=== PATIENT | female | born 1990 | race American Indian/Alaskan Native ===

== ENCOUNTER 2017-12-23 15:22 | Inpatient (IN) | payer OTHER ==
[~2017-12-23] VITALS: Ht 160 cm; Wt 50.6 kg
[~2017-12-23 15:22] MED LIST: ALBENZA200 MG PO; CEPHALEXIN500 MG PO; COLACE100 MG PO; CONCERTA54 MG PO; IRON325 MG PO; PREDNISONE20 MG PO; PROVENTIL HFA6.7 GM INH; RISPERDAL4 MG PO
--- NOTE | 2017-12-23 18:45 | NUR ---
PT TO ROOM 113 AT THIS TIME. PT ALERT AND ORIENTED. SHE REPORTS 10/10 PAIN
--- NOTE | 2017-12-23 19:25 | NUR ---
IN ROOM FOR REPORT, PT IS AWAKE IN BED WITH MOM IN ROOM. SHE DENIES NEEDS AT THIS TIME CALL LIGHT IS WITHIN REACH.
--- NOTE | 2017-12-23 19:31 | NUR ---
ADMINSITERED 4MG I.V. MORPHINE AT THIS TIME PER TELEPHONE ORDER. PT RATES PAIN 03/11
--- NOTE | 2017-12-23 20:10 | NUR ---
IN ROOM TO ASSESS PT, SHE STATES HER PAIN IS UNDER CONTROL AT THIS TIME. SHE IS SLEEPY AND DENIES NEEDS. CALL LIGHT IS WITHIN REACH AND HER PARENTS ARE AT BEDSIDE.
--- NOTE | 2017-12-23 21:06 | NUR ---
ROUNDED CHARGE. PATIENT IS RESTING IN BED. NO COMMENTS, QUESTIONS, OR CONCERNS NOTED. CALL LIGHT IN REACH.
--- NOTE | 2017-12-23 22:38 | NUR ---
PATIENTS BOLUS STARTED PER ORDER. EVENING MEDICATIONS GIVEN PER ORDER. NO NAUSEA OR PAIN NOTED. CALL LIGHT IN REACH.
--- NOTE | 2017-12-23 22:53 | NUR ---
ASSISTED PATIENT TO THE BATHROOM. PATIENT HAD 600ML VOMITUS WITH SOME SOLID PARTTICLES LOOKS LIKE FROM FOOD SHE ATE. PATIENT C/O STOMACH PAIN. RN JAYLENE NOTIFIED. PATIENT IS BACK IN BED. PATIENT ASKED FOR [place] SODA, GIVEN. CALL LIGHT WITHIN REACH.
--- NOTE | 2017-12-23 23:04 | NUR ---
VOCATIONAL NURSING INSTRUCTOR REPORTED PT HAD EMESIS AND PAIN. PT RATES PAIN 5/10 AT THIS TIME. ADMINISTERED ZOFRAN AND 4 MG MORPHINE. SHE DENIES FURTHER NEEDS AT THIS TIME. CALL LIGHT IS WITHIN REACH.
--- NOTE | 2017-12-24 00:57 | NUR ---
HANDOFF REPORT RECEIVED FROM JD MARIEE. CHECKED ON PT, APPEARS TO BE SLEEPING, EYES CLOSED, BREATHING NON-LABORED, IVF INFUSING, SCDS ON.
--- NOTE | 2017-12-24 01:51 | NUR ---
IN PT ROOM FOR VITALS AND ASSESSMENT, PT AWAKE, LYING IN BED, DROWSY, RATES PAIN 0/10 AT THIS TIME. ABD TENDER IN RUQ WITH PALPATION, BOWEL TONES ACTIVE X 4, ABD. SOFT, NON-DISTENDED. LUNGS CLEAR THROUGHOUT, HR REGULAR RHYTHM. CSM INTACT. IVF INFUSING WNL, D5LR NOW INFUSING. CALL LIGHT IN REACH. LIGHTS OFF IN ROOM.
--- NOTE | 2017-12-24 01:52 | NUR ---
JD LYON IS AWARE RE BP.
--- NOTE | 2017-12-24 04:00 | NUR ---
CHECKED ON PT, EYES CLOSED, BREATHING NON-LABORED, MOVING LEGS, SCDS ON, IVF INFUSING.
--- NOTE | 2017-12-24 05:29 | NUR ---
PT HAD EMESIS AT START OF SHIFT. PAIN WELL CONTROLLED THROUGHOUT SHIFT WITH PRN MORPHINE. BOWEL TONES ACTIVE, ABD SOFT, TENDER IN RUQ. PT NPO AT MIDNIGHT. IVF INFUSING THROUGHOUT SHIFT. SCDS IN PLACE. PT USING CALL LIGHT APPRORIATELY SBA TO RESTROOM QS VOIDS AND BM THIS SHIFT.
--- NOTE | 2017-12-24 05:52 | NUR ---
IN PT ROOM FOR SCHEDULED ANTIBIOTIC ADMINISTRATION. PT SLEEPING, AWAKENS TO RN VOICE. PT DENIES PAIN AT THIS TIME, DROWSY. RICHIE JOHNSON IN ROOM FOR VITALS. CALL LIGHT IN REACH, PT HAS NO REQUESTS AT THIS TIME, DENIES TOILETING NEEDS.
--- NOTE | 2017-12-24 06:42 | NUR ---
CALL LIGHT ANSWERED, PT SALINE LOCKED FOR SHOWER. RICHIE JOHNSON IN ROOM, EDUCATION PROVIDED FOR SURGICAL SCRUB DOWN, PT VERBALIZES UNDERSTANDING.
--- NOTE | 2017-12-24 06:59 | NUR ---
PATIENT SHOWERED. PRE OP WIPES DONE.
--- NOTE | 2017-12-24 07:59 | NUR ---
PT RESTING AT BEDSIDE WITH FAMILY, DENIES PAIN AND NAUSEA, NO DISTRESS. PT STATES THAT SHE DID THE PRE PROCEDURE CLEANSE INSTRUCTED BY TAXI SERVICER. PT IS INTERMITTENTLY DROWSY DUE TO LACK OF SLEEP ON TAXI SERVICER. ABDOMEN IS NONTENDER TO PALPATION THIS MORNING, NO EMESIS.
--- NOTE | 2017-12-24 11:08 | NUR ---
12/24/17 1108 Ramya Lopez 1103-PATIENT ARRIVED TO PACU ON 10L MASK O2 SAT 100% PATIENT MOVING LEGS. REACTIVE TO VOICE EYES OPENING ORIENTED TO PLACE. WEANED TO 6L MASK O2 SAT 100% RR EVEN. SR. 4 LAP SITES TO ABDOMEN CDI.
--- NOTE | 2017-12-24 11:45 | NUR ---
RECEIVED PT FROM PACU, DROWSY BUT ABLE TO CONVERSE AND TRANSFER HERSELF TO HER BED. 4 LAP SITES WITH STERISTRIPS WITH SMALL AMOUNT OF SANGUOUS DRAINAGE. VSS, ON ROOM AIR, NO DISTRESS. PT DENIES NAUSEA/NO EMESIS.
--- NOTE | 2017-12-24 13:00 | NUR ---
PT RESTING AT BEDSIDE, VSS, NO DISTRESS, VERY DROWSY BUT ROUSABLE. MINIMAL DRAINAGE TO LAP SITES. PT USING SCDS, AND DOES NOT REQUEST PAIN MANGAGEMENT AT THIS TIME.
--- NOTE | 2017-12-24 15:26 | NUR ---
PT SLEEPING. PT DOES NOT WANT TO EAT AT THIS TIME.
--- NOTE | 2017-12-24 16:46 | NUR ---
PT DROWSY AT BEDSIDE, ORDERED DINNER EARLY, BUT CURRENTLY NOT EATING. VSS, NO DISTRESS. REINFORCED DRESSINGS, NO ADDITIONAL DRAINAGE NOTED. WILL CONTINUE TO MONITOR.
--- NOTE | 2017-12-24 18:14 | NUR ---
LINENS CHANGE, GIVEN NEW GOWN, PT SOILED WITH FOOD. PT DENIES NAUSEA AND COMPLAINS OF ABDOMINAL PAIN, GAVE PRN IBUPROFEN PER ORDERS. WILL CONTINUE TO MONITOR.
--- NOTE | 2017-12-24 18:15 | NUR ---
PT HAS NOT COMPLAINED OF PAIN UNTIL AFTER 1800. PT DENIES NAUSEA AND SOB. SURGERY WENT WELL, MINIMAL DRAINAGE TO LAT SITES, REINFORCED TWO, NO NEW DRAINAGE. PT UP TO BATHROOM WITH MINIMAL ASSIST. PT HAS TOLERATED MEALS THUS FAR. ABDOMEN IS TENDER TO PALPATION.
--- NOTE | 2017-12-24 19:00 | NUR ---
BEDSIDE REPORT RECEIVED FROM JD HEARD. PT APPEARS TO BE SLEEPING, EYES CLOSED, BREATHING NON-LABORED. CONT. PULSE OX ON SPO2 98%, HR 97. IVF INFUSING WNL. SCDS ON. WILL CONTINUE TO MONITOR.
--- NOTE | 2017-12-24 20:29 | NUR ---
NEW BAG IVF INFUSING. PT RATES PAIN 3/10 IN ABD AT INCISION SITES, BOWEL TONES ACTIVE X 4, TENDER W PALPATION IN RUQ, ABD SOFT. PT DENIES NAUSEA. INCISIONS CLEAN DRY AND INTACT, MID ABD SITE WITH GAUZE REINFORCING, NO DRAINAGE NOTED. SBA TO RESTROOM FOR VOID AND BACK TO BED. PT GIVEN ICE WATER, SPRITE REQUESTED. CALL LIGHT IN REACH, LIGHTS OFF IN ROOM. SCDS ON.
--- NOTE | 2017-12-24 21:06 | NUR ---
CALL LIGHT ANSWERED, SBA TO RESTROOM FOR VOID AND BACK TO BED. PT C/O "DISCOMFORT", "NOT PAIN" IN ABD. PRN TYLENOL ADMINISTERED. SCDS ON, IVF INFUSING. CALL LIGHT IN REACH.
--- NOTE | 2017-12-24 22:06 | NUR ---
CALL LIGHT ANSWERED, PT C/O PAIN 10/09 PRN NORCO ADMINISTERED. SBA TO RESTROOM FOR VOID. GIVEN SANDWICH REQUESTED. IVF INFUSING WNL. SCDS ON. CALL LIGHT IN REACH.
--- NOTE | 2017-12-25 00:15 | NUR ---
CHECKED ON PT, APPEARS TO BE SLEEPING, EYES CLOSED. SATURATIONS WNL ON CONT. PULSE OX, SCDS ON, IVF INFUSING. LIGHTS OFF IN ROOM.
--- NOTE | 2017-12-25 01:50 | NUR ---
IN PT ROOM FOR VITALS, VITALS STABLE. SBA TO RESTROOM FOR VOID AND BACK TO BED, PT PASSING FLATUS. BOWEL TONES ACTIVE X 4, LAP SITES C/D/I X 4, NONTENDER W PALPATION, PT DENIES PAIN, DENIES NAUSEA, ABD.SOFT. IVF INFUSING WNL. PT GIVEN SPRITE REQUESTED. CALL LIGHT IN REACH, SCDS ON.
--- NOTE | 2017-12-25 02:30 | NUR ---
CALL LIGHT ANSWERED, PT C/O DISCOMFORT WHEN TRYING TO HAVE BM, DOES NOT RATE PAIN, PRN MOTRIN ADMINISTERED. SCDS ON, IVF INFUSING, CALL LIGHT IN REACH.
--- NOTE | 2017-12-25 04:31 | NUR ---
CHECKED ON PT, EYES CLOSED, BREATHING NON-LABORED, SATURATIONS WNL. IVF INFUSING, SCDS ON.
--- NOTE | 2017-12-25 06:00 | NUR ---
PAIN CONTROLLED WITH PRN MOTRIN, TYLENOL AND NORCO. PT AMBULATING WELL, INDEPENDANT IN ROOM. LAP SITES C/D/I, BOWEL TONES ACTIVE X 4, ABD SOFT, PT PASSING FLATUS. NO REPORTED NAUSEA, TOLERATING REGULAR DIET WELL. IVF INFUSING WNL THROUGHOUT SHIFT. SCDS ON.
--- NOTE | 2017-12-25 06:28 | NUR ---
IN PT ROOM FOR ANTIBIOTIC ADMINISTRATION. PT DENIES ANY PAIN. DROWSY, AWAKENS EASILY. SCDS ON. IVF INFUSING WNL. CALL LIGHT IN REACH. NO REQUESTS AT THIS TIME.
--- NOTE | 2017-12-25 07:54 | NUR ---
PT RESTING COMFORTABLY IN BED, ABLE TO GET TO BATHROOM INDEPENDENTLY. DENIES NAUSEA, PAIN IS INTERMITTENT TO ABDOMEN. NO DISTRESS. PT IS REQUESTING DISCHARGE. GAVE SPRITE THIS AM AT PT REQUEST. TOLERATING REGULAR DIET WELL.
--- NOTE | 2017-12-25 10:39 | NUR ---
MED REC COMPLETE
--- NOTE | 2017-12-25 12:28 | NUR ---
PATIENT HAS COMPANY IN HER ROOM SHE IS ALSO EATING HER LUNCH.
[2017-12-25] MEDS ORDERED: HYDROCODON-ACE1 EA10 PO (14:30)
[2017-12-25] MEDS ORDERED: IBUPROFEN600 MG PO (14:30)
[2017-12-25] MEDS ORDERED: MAPAP325 MG PO (14:30)
--- NOTE | 2017-12-25 23:51 | DS ---
[facility] [address] [place], [place] [address] Signed ADMISSION DATE: 12/23/2017 DISCHARGE DATE: 12/25/2017 REASON FOR ADMISSION: This is a 27-year-old woman presented to the emergency room with severe unrelenting right upper abdominal pain. She has had multiple such episodes in the past. She was evaluated by Dr. Weber, emergency room physician and found to have tenderness in the upper abdomen. An ultrasound was performed showing a gallbladder with at least one gallstone and thickening of the gallbladder wall consistent with acute cholecystitis. She is admitted for further evaluation and care. PAST MEDICAL HISTORY: Significant for depression and asthma as well as attention deficit disorder. Additionally, she does have ongoing use of cocaine and methamphetamine, having been free of drug use for 3 days. She does smoke, but does not drink alcohol. PERTINENT PHYSICAL EXAMINATION: GENERAL: Showed a somewhat subdued woman. HEENT: She had dehydration with a very dry trunk. Trachea is midline. She had no hoarseness. CHEST: Clear. HEART: Regular without murmur. ABDOMEN: Nondistended. There is some vitiligo of the skin of the abdomen. She had marked tenderness in right subcostal area, but no palpable mass. There is no ascites. LABORATORY STUDIES: Showed elevated white count 13.2, normal hematocrit of 47.3, and platelets 306. Beta-hCG was negative. Urinalysis normal. Electrolytes normal except for potassium of 3.3. Liver enzymes were normal. HOSPITAL COURSE: She was admitted given fluid resuscitation, parental pain medication, and prepared for operation. On December 24, 2017, she underwent laparoscopic cholecystectomy with intraoperative cholangiogram. She was found to have a markedly contorted gallbladder and clear bile was noted. Decompression of the gallbladder was required to grasp the gallbladder. Once the gallbladder was excised, was notable for a single stone wedged in the infundibulum. Notably, intraoperative cholangiogram was normal. The liver appeared normal as well. Electronically Signed By: HARPER VAN MD 12/25/17 2351 PATIENT NAME: JHONNY KIRK DISCHARGE SUMMARY DATE OF : [birth year] REPORT #: [id number] PHYSICIAN: HARPER VAN MD PCP: BRITNI BISHOP MD REPORT IS CONFIDENTIAL AND NOT TO BE RELEASED WITHOUT AUTHORIZATION [facility] [address] [place] [id number] Signed Her postoperative course was rather unremarkable. By the time of discharge, she is ambulating well, tolerating regular diet, has no significant incisional pain. FOLLOWUP PLAN: She is return to see me in approximately 4 weeks. She will avoid lifting greater than 20 pounds for the next 2 weeks. She will keep Steri-Strips on and is permitted to shower tomorrow. DISCHARGE MEDICATIONS: 1. Ibuprofen 600 mg p.o. q.6 hours p.r.n. pain #30, refill zero. 2. [place] 5/325 1-2 p.o. q.4 hours p.r.n. pain #5, no refills. 3. Tylenol 650 mg p.o. q.6 hours p.r.n. pain #30. OTHER ADDITIONAL INSTRUCTIONS: She is to lift no more than 20 pounds for the next 2 weeks. She is permitted to shower and keep Steri-Strips on. DISCHARGE DIAGNOSES: 1. Acute calculous cholecystitis with longstanding obstruction of gallbladder and white bile. Status post laparoscopic cholecystectomy with intraoperative cholangiogram. 2. History of drug use including methamphetamine and cocaine. 3. Attention deficit disorder. MD ALYCE Cohn/MODL /[id number] cc: MD Kwame Venegas MD Copies: BRITNI BISHOP MD Electronically Signed By: HARPER VAN MD 12/25/17 2351 PATIENT NAME: JHONNY KIRK DISCHARGE SUMMARY DATE OF : [birth year] REPORT #: [id number] PHYSICIAN: HARPER VAN MD PCP: BRITNI BISHOP MD REPORT IS CONFIDENTIAL AND NOT TO BE RELEASED WITHOUT AUTHORIZATION [facility] [address] [place], [place] [address], [place] [address] Signed KWAME WEBER MD ~ Electronically Signed By: HARPER VAN MD 12/25/17 7551 PATIENT NAME: DOMINICK LOREDOJHONNY VAIL DISCHARGE SUMMARY DATE OF : [birth year] REPORT #: [id number] PHYSICIAN: HARPER VAN MD PCP: BRITNI BISHOP MD REPORT IS CONFIDENTIAL AND NOT TO BE RELEASED WITHOUT AUTHORIZATION
--- NOTE | 2017-12-25 23:52 | HP ---
[facility] [address] [place], [place] [address] Signed ADMISSION DATE: 12/23/2017 REASON FOR ADMISSION: Acute calculous cholecystitis. HISTORY OF PRESENT ILLNESS: This 27-year-old woman presented to the emergency room today with rather severe, unrelenting right upper abdominal pain. This is not the first episode of such pain that she has had. She had some associated nausea, but no particular vomiting that I can tell. She was thoroughly evaluated by Dr. Weber, and was found to have tenderness in the upper abdomen, and an ultrasound was performed showing a gallbladder with at least one gallstone and thickening of the gallbladder wall consistent with cholecystitis. On that basis, she was admitted for further evaluation and care. PAST MEDICAL HISTORY: Significant for depression, as well as asthma, and attention deficit disorder. She is accompanied by her parents today. She lives alone. She does have a history of smoking, and no alcohol use, but has drug use of cocaine and methamphetamine. PAST SURGICAL HISTORY: Surgical history includes tonsillectomy and adenoidectomy. She does have history of the prescription albendazole (Albenza, an anthelmintic medication). Her evaluation in the emergency room included liver studies, which were normal. A white count elevation to 13.2, normal hematocrit of 47.3 with platelet count of 306, and electrolytes abnormal only for potassium at 3.3. Her beta HCG was found to be negative as was her urinalysis. The patient was given intravenous fluids, Zofran intravenously administered, or at least offered, and initiated on Ancef, Pepcid, and parenteral pain medication. REVIEW OF SYSTEMS: She denies any shortness of breath or chest pain. She has had no hematemesis or blood per rectum. Denies any pain other than the right upper abdomen at this time. PHYSICAL EXAMINATION: GENERAL: A pleasant woman with a white shock of hair in addition to her black hair. She has clinical dehydration with a dry tongue. Trachea is midline. She has no hoarseness. Electronically Signed By: HARPER VAN MD 12/25/17 2352 PATIENT NAME: JHONNY KIRK HISTORY AND PHYSICAL DATE OF : [birth year] REPORT #: [id number] PHYSICIAN: HAREPR VAN MD PCP: BRITNI BISHOP MD REPORT IS CONFIDENTIAL AND NOT TO BE RELEASED WITHOUT AUTHORIZATION [facility] [address] [place], [place] [address] Signed CHEST: Clear. HEART: Regular without murmur. ABDOMEN: Nondistended. There is some vitiligo noted. She has marked tenderness in right subcostal area with no palpable mass. There is no ascites. EXTREMITIES: Show no clubbing, cyanosis, or edema. LABORATORY DATA: Lab studies were as previously described. I have reviewed her ultrasound confirming a thickened gallbladder wall, single gallstone and findings consistent with acute cholecystitis. ASSESSMENT: Has acute calculous cholecystitis. Discussed the pathophysiology of problem with the parents, and the patient, and recommendation of treatment to include cholecystectomy, preferred by laparoscopic approach. The risks of bleeding, infection, bile duct injury, need for open procedure and other unforeseen complications were reviewed in detail. She needs additional fluid resuscitation. We will plan to do operation tomorrow morning when OR time is available. She may have a few liquids orally n.p.o. after midnight at least for comfort. We will replete her potassium as well. Continued use of Ancef intravenously administered, as well as Pepcid, as well as sequential compression device stockings, and heparin subcutaneously will be undertaken. MD ALYCE Cohn/DUSTINL /[id number] cc: MD Britni Medrano MD Electronically Signed By: HARPER VAN MD 12/25/17 2352 PATIENT NAME: JHONNY KIRK HISTORY AND PHYSICAL DATE OF : [birth year] REPORT #: [id number] PHYSICIAN: HARPER VAN MD PCP: BRITNI BISHOP MD REPORT IS CONFIDENTIAL AND NOT TO BE RELEASED WITHOUT AUTHORIZATION [facility] [address] [place], [place] [address] Signed Copies: CINDY WEBER MD, REX MD ~ Electronically Signed By: HARPER VAN MD 12/25/17 2352 PATIENT NAME: DOMINICK DUKESJHONNY BIRDN HISTORY AND PHYSICAL DATE OF : [birth year] REPORT #: [id number] PHYSICIAN: HARPER VAN MD PCP: BRITNI BISHOP MD REPORT IS CONFIDENTIAL AND NOT TO BE RELEASED WITHOUT AUTHORIZATION
--- NOTE | 2017-12-25 23:52 | OR ---
[facility] [address] [place], [place] [address] Signed DATE OF OPERATION: 12/24/2017 SURGEON: Harper Van MD PREOPERATIVE DIAGNOSES: 1. Acute calculous cholecystitis. 2. Drug addiction (methamphetamine, cocaine, and marijuana). POSTOPERATIVE DIAGNOSES: 1. Acute calculous cholecystitis. 2. Drug addiction (methamphetamine, cocaine, and marijuana). 3. Completely obstructed gallbladder with "white bile.". PROCEDURES: 1. Laparoscopic cholecystectomy with intraoperative cholangiogram, prolonged, complicated, and difficult. 2. Surgeon-directed fluoroscopy. ANESTHESIA: General endotracheal, Harper Queen CRNA and local 20 mL of 0.25% Marcaine with epinephrine. INDICATION: This 27-year-old [place] woman was admitted through the emergency room yesterday with severe epigastric and right subcostal pain. She is three days abstinent from methamphetamine and cocaine use as well as chronic use of marijuana. Her evaluation in the emergency room confirmed acute cholecystitis with gallbladder ultrasound showing a single gallstone and a thickened gallbladder wall and distended gallbladder. Her liver enzymes are normal. Amylase is normal as well. She has been fluid resuscitated, given intravenous antibiotics, and is now to undergo cholecystectomy preferred by laparoscopic approach. The risks of bleeding, infection, bile duct injury, need for open procedure and other unforeseen complications were reviewed in detail. She understands and wished to proceed. FINDINGS: The gallbladder was markedly tense and distended and looked to be chronically inflamed and whitish in color. Decompression of gallbladder showed clear bile concordant to ultrasound findings of a single gallstone wedged in the infundibulum. Cholangiogram was normal. The contortion of the gallbladder with her chronic inflammation made dissection Electronically Signed By: HARPER VAN MD 12/25/17 4522 PATIENT NAME: JHONNY KIRK OPERATIVE REPORT DATE OF : [birth year] REPORT #: [id number] PHYSICIAN: HARPER VAN MD PCP: BRITNI BISHOP MD REPORT IS CONFIDENTIAL AND NOT TO BE RELEASED WITHOUT AUTHORIZATION [facility] [address] [place], [place] [address] Signed of the triangle of [place] challenging, but it was accomplished safely with a critical view as a priority. The liver itself appeared normal. There was no signs of cirrhosis or other issues. DESCRIPTION OF PROCEDURE: The patient was brought to the operating room, given a general endotracheal anesthetic. The ongoing use of Ancef was noted and a dose given immediately preoperatively. Sequential compression device stockings were used and heparin subcutaneously administered. After satisfactory general endotracheal anesthesia, the abdomen was prepared with a chlorhexidine solution and draped sterilely. An infraumbilical incision was made and using an open Lior cannula technique pneumoperitoneum was achieved to a level of 14 mmHg of carbon dioxide gas. Intraabdominal inspection showed no sign of ascites or carcinomatosis. The gallbladder was markedly distended. The liver appeared reasonably normal. Three additional trocars were placed in usual configuration in the subxiphoid, right midclavicular, and right anterior axillary line. Attempts at grasping the gallbladder to elevate it cephalad was impossible due to the tense nature of the gallbladder and on that basis a laparoscopic trocar device was used to decompress the gallbladder. Clear bile was noted. The puncture site was grasped and the gallbladder elevated. There appeared to be an involutional or rolling of the infundibulum toward the liver itself. The common bile duct was visualized and well out of that area. Using blunt electrocautery dissection, the posterior aspect of the infundibulum and secondarily in the medial aspect. Ultimately, the triangle of [place]ot was dissected free identifying well the cystic duct and the common bile duct. This took a fair amount of time. A nest of blood vessels was noted in the infundibulum as well, was left in situ, uncertain of the anatomy of the biliary tree entirely. Once the cystic duct was well identified and the critical view well-established, a clip was applied across gallbladder cystic duct junction and a transverse choledochotomy made in the cystic duct. Egress of clear yellow bile was then noted. Using the Haines type cholangiocatheter, intraoperative cholangiography was undertaken showing free flow of contrast in biliary tree with prompt emptying into the duodenum. Biliary anatomy is conventional. There was no sign of filling defect or other abnormality. Three clips were applied across the cystic duct and the cystic duct was transected. The gallbladder was then dissected free in a retrograde fashion. There appeared to be a network of small blood vessels in the region of the infundibulum tracking along the gallbladder essentially subvesical arterial branches. The clips were applied as needed. The gallbladder was dissected free in a retrograde fashion, ultimately allowing for excision. It was placed in an endobag and extracted through the infraumbilical port site opened on the back table and found to have completely white mucosa, chronic inflammatory change and a single yellow gallstone 1.5 cm in size that was oblong in Electronically Signed By: HARPER VAN MD 12/25/17 2352 PATIENT NAME: JHONNY KIRK OPERATIVE REPORT DATE OF : [birth year] REPORT #: [id number] PHYSICIAN: HARPER VAN MD PCP: BRITNI BISHOP MD REPORT IS CONFIDENTIAL AND NOT TO BE RELEASED WITHOUT AUTHORIZATION [facility] [address] [place], [place] [address] Signed shape. Irrigation was undertaken in the subhepatic space. Oozing from the hepatic bed was secured with electrocautery. Shane was applied to the raw surface area of the liver and ultimately the liver allowed to fold down to the omentum in the subhepatic space. Excess irrigation fluid was suctioned free. The trocars were removed under direct visualization showing no sign of bleeding. The infraumbilical fascial incision was reapproximated with interrupted 0 Vicryl suture. All wounds were copiously irrigated with saline solution. Skin closed with interrupted 3-0 Vicryl. Steri-Strips were applied. The patient was ultimately extubated and transferred to recovery in good condition, having suffered no complication. Sponge, needle, and instruments counts reported as correct x3. MD ALYCE Cohn/DUSTINL /[id number] cc: MD Kwame Venegas MD Copies: BRITNI BISHOP MD, MICHAEL MD ~ Electronically Signed By: HARPER VAN MD 12/25/17 2352 PATIENT NAME: JHONNY KIRK OPERATIVE REPORT DATE OF : [birth year] REPORT #: [id number] PHYSICIAN: HARPER VAN MD PCP: BRITNI BISHOP MD REPORT IS CONFIDENTIAL AND NOT TO BE RELEASED WITHOUT AUTHORIZATION
== END 2017-12-25 15:07 | disposition home or self-care (01) | DRG 418 ==
LOC: ED 15:22 → MS 18:21
PROVIDERS: ADMIT Surgery
PROC: BF10YZZ Fluoroscopy of Bile Ducts using Other Contrast (ICD-10-PCS; 2017-12-24)
PROC: 0FT44ZZ Resection of Gallbladder, Percutaneous Endoscopic Approach (ICD-10-PCS; principal; 2017-12-24 09:00)
DX: K80.00 Calculus of gallbladder with acute cholecystitis without obstruction (principal); F19.20 Other psychoactive substance dependence, uncomplicated; F90.9 Attention-deficit hyperactivity disorder, unspecified type; F32.9 Major depressive disorder, single episode, unspecified
CPT/HCPCS: 00790; 74300; 76705; 80053; 81001; 83690; 84703; 85025; 96374; 96375; 96376; 99285; J0330; J0690; J1100; J1644; J1885; J2250; J2270; J2405; J2550; J2704; J2765; J3010; J7030; J7120; Q9967

== ENCOUNTER 2018-01-06 14:33 | Emergency (ER) | payer OTHER ==
[~2018-01-06] VITALS: Ht 160 cm; Wt 50.6 kg
[~2018-01-06 14:33] MED LIST changes: +HYDROCODON-ACE1 EA10 PO; +IBUPROFEN600 MG PO; +MAPAP325 MG PO
[2018-01-06] MEDS ORDERED: MIRENA1 EACH (14:48)
[2018-01-06] MEDS ORDERED: ONDANSETRON ODT8 MG PO (17:19)
== END 2018-01-06 17:45 | disposition home or self-care (01) ==
LOC: ED 14:33
DX: K52.9 Noninfective gastroenteritis and colitis, unspecified (principal); F32.9 Major depressive disorder, single episode, unspecified; J45.909 Unspecified asthma, uncomplicated; F90.9 Attention-deficit hyperactivity disorder, unspecified type
CPT/HCPCS: 80053; 81001; 83690; 84703; 85025; 99283

== ENCOUNTER 2018-02-12 21:27 | Emergency (ER) | payer OTHER ==
--- OUTSIDE RECORDS SUMMARY | ~2018-02-12 | XMS | Clinical Summary ---
Demographics + + + | Address | [address] | | | [place] [address] | + + + | Home Phone | | + + + | Preferred Language | Unknown | + + + | Marital Status | Single | + + + | Pentecostalism Affiliation | Unknown | + + + | Race | Unknown | + + + | Ethnic Group | Unknown | + + + Author + + + | Author | [facility] | | | and [place] | + + + | Organization | [facility] | | | and [place] | + + + | Address | Unknown | + + + | Phone | Unavailable | + + + Support + + +---------+ + | Name | Relationship | Address | Phone | + + +---------+ + | Malinda Meza | ECON | Unknown | | + + +---------+ + | Malinda Meza | ECON | Unknown | | + + +---------+ + Care Team Providers + +------+ + | Care Public Events Facilities Rental Manager Name | Role | Phone | + +------+ + | Magan Ayon DO | PP | | + +------+ + Allergies No Known Allergies Current Medications + + +-------+---------+------+------+-------+ | Prescription | Sig. | Disp. | Refills | Star | End | Statu | | | | | | t | Date | s | | | | | | Date | | | + + +-------+---------+------+------+-------+ | | Take 1 tablet by | | | | | Activ | | HYDROcodone-acetamin | mouth every 6 hours | | | | | e | | ophen (NORCO) 5-325 | as needed for Pain. | | | | | | | mg per tablet | | | | | | | + + +-------+---------+------+------+-------+ Active Problems No known active problems Social History + +-------+ +--------+------+ | Tobacco Use | Types | Packs/Day | Years | Date | | | | | Used | | + +-------+ +--------+------+ | Never Smoker | | | | | + +-------+ +--------+------+ + +---+---+---+ | Smokeless Tobacco: | | | | | Never Used | | | | + +---+---+---+ + + +---------+ + | Alcohol Use | Drinks/We | oz/Week | Comments | | | ek | | | + + +---------+ + | No | | | | + + +---------+ + + + + | Sex Assigned at | Date Recorded | | | | + + + | Not on file | | + + + Last Filed Vital Signs + + + + | Vital Sign | Reading | Time Taken | + + + + | Blood Pressure | 106/78 | 08/30/2017 0618 PDT | + + + + | Pulse | 86 | 08/30/2017617 PDT | + + + + | Temperature | 36.8 C (98.2 F) | 08/30/2017617 PDT | + + + + | Respiratory Rate | 16 | 08/30/2017617 PDT | + + + + | Oxygen Saturation | 97% | 08/30/2017617 PDT | + + + + | Inhaled Oxygen | - | - | | Concentration | | | + + + + | Weight | 58.1 kg (128 lb) | 08/30/2017617 PDT | + + + + | Height | 160 cm (5' 3") | 08/30/2017617 PDT | + + + + | Body Mass Index | 22.67 | 08/30/2017617 PDT | + + + + Plan of Treatment + + + + + | Health Maintenance | Due Date | Last Done | Comments | + + + + + | Vaccine: | | | | | Dtap/Tdap/Td (1 - | 0 | | | | Tdap) | | | | + + + + + | Cervical Cancer | | | | | Screening (Pap) | 2 | | | + + + + + | Vaccine: Influenza | | | | | (#1) | 8 | | | + + + + + Results Not on filefrom Last 3 Months Insurance + +--------+ +--------+ +---------+ | Payer | Benefi | Subscriber | Type | Phone | Address | | | t Plan | ID | | | | | | / | | | | | | | Group | | | | | + +--------+ +--------+ +---------+ | HEALTH | IHS | [id number] | Indemn | | | | SERVICE | YELLOW | | [place] | | | | | [place] | | | | | + +--------+ +--------+ +---------+ | HEALTH | IHS | [id number] | Indemn | | | | SERVICE | [place]LLOW | | [place] | | | | | [place] | | | | | + +--------+ +--------+ +---------+ | [place] MEDICA | [id number] | Medica | [phone] | | | [place] | | id | [phone] | | | | PLUS | | | | | + +--------+ +--------+ +---------+ | [place] MEDICA | [id number] | [place] | +- | | | | [place] | | id | [phone] | | | | PLUS | | | | | + +--------+ +--------+ +---------+ | [place]ICA | [id number] | [place] | +- | | | | [place] | | id | [phone] | | | | PLUS | | | | | + +--------+ +--------+ +---------+ + +--------+ +--------+ + + | Guarantor Name | Accoun | Relation to | Date | Phone | Billing Address | | | t Type | Patient | of | | | | | | | | | | + +--------+ +--------+ + + | ROSELINE | Person | Self [birth year] | Home: | [address] | | [place] | al/Fam | | 1990 | [phone] | [address] [place], [place] | | | liset | | | [phone] | + +--------+ +--------+ + + | BOYD-SERGEY DUKES | Person | Self | [birth year] | Home: | [address] | | ER D | al/Fam | | 1990 | [phone] | [address] [place], [place] | | | liset | | | [phone] | + +--------+ +--------+ + +
--- OUTSIDE RECORDS SUMMARY | ~2018-02-12 | XMS | Clinical Summary ---
Demographics + + + | Address | [address] | | | [place] [address] | + + + | Home Phone | | + + + | Preferred Language | Unknown | + + + | Marital Status | Single | + + + | Jew Affiliation | Unknown | + + + | Race | Unknown | + + + | Ethnic Group | Unknown | + + + Author + + + | Author | [facility] | + + + | Organization | [facility] | + + + | Address | Unknown | + + + | Phone | Unavailable | + + + Support + + +---------+ + | Name | Relationship | Address | Phone | + + +---------+ + | John Nix | ECON | Unknown | | + + +---------+ + Care Team Providers + +------+ + | Care Central Office Supervisor Name | Role | Phone | + +------+ + PP | Unavailable | + +------+ + Allergies Not on File Current Medications No known medications Active Problems Not on file Family History + +------+--------+ + | Relation | Name | Status | Comments | + +------+--------+ + | Father | | Alive | | + +------+--------+ + | Mother | | Alive | | + +------+--------+ + Social History + +-------+ +--------+------+ | [...] + + + | Blood Pressure | - | - | + + + + | Pulse | - | - | + + + + | Temperature | - | - | + + + + | Respiratory Rate | - | - | + + + + | Oxygen Saturation | - | - | + + + + | Inhaled Oxygen | - | - | | Concentration | | | + + + + | Weight | 59 kg (130 lb) | 06/17/2017 1:38 PM PST | + + + + | Height | 160 cm (5' 3") | 06/17/2017 1:38 PM PST | + + + + | Body Mass Index | 23.03 | 06/17/2017 1:38 PM PST | + + + + Plan of [...] filefrom Last 3 Months Insurance + +--------+ +------+-------+ + | Payer | Benefi | Subscriber | Type | Phone | Address | | | t Plan | ID | | | | | | / | | | | | | | Group | | | | | + +--------+ +------+-------+ + | [employer] | YELLOW | [id number] | | | | | PLANS | [place] | | | | | + +--------+ +------+-------+ + | MEDICAID | MEDICA | [id number] | | | [address] | | | ID | | | | [place] | | | [place] | | | | [phone] | + +--------+ +------+-------+ + + +--------+ +--------+ + + | Guarantor Name | Accoun | Relation to | Date | Phone | Billing Address | | | t Type | Patient | of | | | | | | | | | | + +--------+ +--------+ + + | MINTHORN | Person | Self | [birth year] | Home: | [address] [place] [address] | | JHONNY NIX D | zoraida/Cristhian | | 1990 | [phone] | [place] [address] | | | liset | | | [phone] | | + +--------+ +--------+ + +
--- OUTSIDE RECORDS SUMMARY | ~2018-02-12 | XMS | Clinical Summary ---
Demographics + + + | Address | [address] | | | [place] [address] | + + + | Home Phone | | + + + | Preferred Language | Unknown | + + + | Marital Status | Single | + + + | Faith Affiliation | Unknown | + + + | Race | Unknown | + + + | Ethnic Group | Unknown | + + + Author + + + | Author | [facility] | | | and [place] | + + + | Organization | [facility] | | | and [...] Team Providers + +------+ + | Care Clinical Trial Specialist Name | Role | Phone | + [...] +--------+ +---------+ | HEALTH | IHS | [id number] | Indemn | | | | SERVICE | YELLOW | | ity | | | | | [place] | | | | | + +--------+ +--------+ +---------+ | HEALTH | IHS | [id number] | Indemn | | | | SERVICE | YELLOW | | [place] | | | | | [place] | | | | | + +--------+ +--------+ +---------+ | [place] | MEDICA | [id number] | Medica | [phone] | | | [place] | | id | [phone] | | | | PLUS | | | | | + +--------+ +--------+ +---------+ | [place] | MEDICA | [id number] | Med[place] | +- | | | | [place] | | id | [phone] | | | | PLUS | | | | | + +--------+ +--------+ +---------+ | [place] | MEDICA | [id number] | Medica | +- | | | [...] | liset | | | [phone] | [phone] | + +--------+ +--------+ + + | BOYD-SERGEY DUKES | Person | Self | [birth year] | Home: | [address] | | ER D | al/Fam | | 1990 | [phone] | [address] [place], [place] | | | liset | | | [phone] | [phone] | + +--------+ +--------+ + +
--- OUTSIDE RECORDS SUMMARY | ~2018-02-12 | XMS | Clinical Summary ---
Demographics + + + | Address | [address] | | | [place] [address] | + + + | Home Phone [...] + + + | Author | [facility] | + + + | Organization | [facility] | + + + | Address | Unknown | + + + | Phone | Unavailable | + + + Support + + +---------+ + | Name | Relationship | Address | Phone | + + +---------+ + | John Nix | ECON | Unknown | | + + +---------+ + Care Team Providers + +------+ + | Care Master [place] Name | Role | Phone | + [...] | | + +--------+ +------+-------+ + | [facility] | YELLOW | [id number] | | | | | PLANS | [place] | | | | | + +--------+ +------+-------+ + | MEDICAID | MEDICA | [id number] | | | [address] | | | ID | | | | [place] | | | [place] | | | | [phone] | + +--------+ +------+-------+ + + +--------+ +--------+ + + | Guarantor Name | Accoun | Relation to | Date | Phone | Billing Address | | | t Type | Patient | of | | | | | | | | | | + +--------+ +--------+ + + | MINTHORN | Person | Self | [birth year] | Home: | [address] [place] [address] | | JHONNY NIX D | zoraida/Cristhian | | 1990 | [phone] | [place] [address] | | | liset | | | [phone] | | + +--------+ +--------+ + +
[~2018-02-12 21:27] MED LIST changes: +MIRENA1 EACH; +ONDANSETRON ODT8 MG PO
== END 2018-02-12 21:36 | disposition left against medical advice (07) ==
LOC: ED 21:27
DX: Z53.21 Procedure and treatment not carried out due to patient leaving prior to being seen by health care provider (principal)

== ENCOUNTER 2018-07-16 00:16 | Emergency (ER) | payer OTHER ==
[~2018-07-16] VITALS: Ht 160 cm; Wt 61.3 kg
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
== END 2018-07-16 07:50 | disposition home or self-care (01) ==
LOC: ED 00:16
PROC: 4A0D7LZ Measurement of Urinary Volume, Via Natural or Artificial Opening (ICD-10-PCS; principal; 2018-07-16)
DX: S00.33XA Contusion of nose, initial encounter (principal); F10.129 Alcohol abuse with intoxication, unspecified; F15.90 Other stimulant use, unspecified, uncomplicated; Y90.8 Blood alcohol level of 240 mg/100 ml or more; F32.9 Major depressive disorder, single episode, unspecified; J45.909 Unspecified asthma, uncomplicated; F90.9 Attention-deficit hyperactivity disorder, unspecified type; Z79.899 Other long term (current) drug therapy; Y04.0XXA Assault by unarmed brawl or fight, initial encounter
CPT/HCPCS: 51701; 70450; 70486; 80053; 81001; 84703; 85025; 99284-25; G0480; J2405; J7030

== ENCOUNTER 2019-02-02 12:07 | Emergency (ER) | payer OTHER ==
[~2019-02-02] VITALS: Ht 160 cm; Wt 54.5 kg
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
== END 2019-02-02 14:37 | disposition home or self-care (01) ==
LOC: ED 12:07
DX: S09.90XA Unspecified injury of head, initial encounter (principal); Y04.0XXA Assault by unarmed brawl or fight, initial encounter
CPT/HCPCS: 70450; 72125; 96372; 99284-25; J1200; J2765

== ENCOUNTER 2019-05-26 20:06 | Emergency (ER) | payer OTHER ==
[~2019-05-26] VITALS: Ht 160 cm; Wt 61.3 kg
--- OUTSIDE RECORDS SUMMARY | ~2019-05-26 | XMS | Encounter Summary ---
Demographics + + + | Address | [address] | | | [place] [address] | + + + | Home Phone | | + + + | Preferred Language | Unknown | + + + | Marital Status | Single | + + + | Samaritan Affiliation | Unknown | + + + | Race | Unknown | + + + | Ethnic Group | Unknown | + + + Author + + + | Author | [facility] | | | and [place] | + + + | Organization | [facility] | | | and [place] | + + + | Address | Unknown | + + + | Phone | Unavailable | + + + Support + + +---------+ + | Name | Relationship | Address | Phone | + + +---------+ + | Malinda Meza | ECON | Unknown | | + + +---------+ + | Malinda Susana Rousseau ECON | Unknown | | + + +---------+ + Care Team Providers + +------+ + | Care Grid Casting Machine Operator Helper Name | Role | Phone | + +------+ + | Magan Ayon DO | PCP | | + +------+ + Reason for Visit + + + | Reason | Comments | + + + | Arm Injury | | + + + Encounter Details +--------+ + + + + | Date | Type | Department | Care Team | Description | +--------+ + + + + | 08/30/ | Emergency | [facility] | Wolfgang Thomason | Closed displaced | | 2017 | | [facility] | [address] | fracture of surgical | | | | CENTER [address] | [facility] | neck of right | | | | DR [place], [place] | [email or web address], [email or web address] [address] | humerus, unspecified | | | | [address] | [phone] | fracture | | | | [phone] | | morphology, initial | | | | | | encounter (Primary | | | | | | Dx) | +--------+ + + + + Social History + +-------+ +--------+------+ | Tobacco [...] + +---------+ + | Alcohol Use | Drinks/Week | oz/Week | Comments | + + +---------+ + | No | | | | + + +---------+ + + + + | Sex Assigned at | Date Recorded | | | | + + + | Not on file | | + + + + + + + | Job Start Date | Occupation | Industry | + + + + | Not on file | Not on file | Not on file | + + + + + + + + | Travel History | Travel Start | Travel End | + + + + + + | No recent travel history available. | + + documented as of this encounter Last Filed Vital Signs + + + + + | Vital Sign | Reading | Time Taken | Comments | + + + + + | Blood Pressure | 106/78 | 08/30/2017 6:18 AM | | | | | PDT | | + + + + + | Pulse | 86 | 08/30/2017 6:18 AM | | | | | PDT | | + + + + + | Temperature | 36.8 C (98.2 F) | 08/30/2017 6:18 AM | | | | | PDT | | + + + + + | Respiratory Rate | 16 | 08/30/2017 6:18 AM | | | | | PDT | | + + + + + | Oxygen Saturation | 97% | 08/30/2017 6:18 AM | | | | | PDT | | + + + + + | Inhaled Oxygen | - | - | | | Concentration | | | | + + + + + | Weight | 58.1 kg (128 lb) | 08/30/2017 6:18 AM | | | | | PDT | | + + + + + | Height | 160 cm (5' 3") | 08/30/2017 6:18 AM | | | | | PDT | | + + + + + | Body Mass Index | 22.67 | 08/30/2017 6:18 AM | | | | | PDT | | + + + + + documented in this encounter Discharge Instructions Wolfgang Stack MD - 08/30/2017Follow-up with your orthopedic surgeon who took care of your initial fracture. documented in this encounter Medications at Time of Discharge + + + +---------+--------+ + | Medication | Sig | Dispensed | Refills | Start | End Date | | | | | | Date | | + + + +---------+--------+ + | | Take 1 tablet by | | 0 | | | | HYDROcodone-acetamin | mouth every 6 hours | | | | | | ophen (NORCO) 5-325 | as needed for Pain. | | | | | | mg per tablet | | | | | | + + + +---------+--------+ + documented as of this encounter Plan of Treatment + +------+--------+ + + | Name | Type | Priori | Associated Diagnoses | Date/Time | | | | ty | | | + +------+--------+ + + | ED INFORMATION | JASMINE | Routin | | 08/30/2017 6:16 AM | | EXCHANGE | | e | | PDT | + +------+--------+ + + documented as of this encounter Procedures + +--------+ + + + | Procedure Name | Priori | Date/Time | Associated Diagnosis | Comments | | | ty | | | | + +--------+ + + + | XR SHOULDER RIGHT 2 | STAT | 08/30/2017 | | Results for this | | + VW | | 6:35 AM | | procedure are in the | | | | PDT | | results section. | + +--------+ + + + | ED INFORMATION | Routin | 08/30/2017 | | | | EXCHANGE | e | 6:16 AM | | | | | | PDT | | | + +--------+ + + + +---+--------+ | | | | | Proced | | | ure | | | Note - | | | Blaise, | | | Lab In | | | | | | Hlseve | | | n - | | | 08/30/ | | | 2018 | | | 6:17 | | | AM PDT | | | | | | Format | | | ting | | | of | | | this | | | note | | | might | | | be | | | differ | | | ent | | | from | | | the | | | origin | | | al.BLAISE | | | E?NOTI | | | FICATI | | | ON?03/ | | | | | | 8 | | | 06:00? | | | MINTHO | | | RN | | | DOMINICK, | | | JENNIF | | | ER | | | D?MRN: | | | | | | [id number] | | | [id number] | | | ecurit | | | y | | | Events | | | No | | | recent | | | | | | Securi | | | ty | | | Events | | | | | | curren | | | tly on | | | | | | fileED | | | Care | | | Guidel | | | inesTh | | | ere | | | are | | | curren | | | tly no | | | ED | | | Care | | | Guidel | | | yomi | | | in | | | JASMINE | | | for | | | this | | | patien | | | t. | | | Please | | | check | | | your | | | facili | | | ty's | | | medica | | | l | | | record | | | s | | | system | | | .Crite | | | daija | | | met 3 | | | | | | Facili | | | ties | | | In 90 | | | DaysCa | | | re | | | Provid | | | ersEDI | | | E has | | | no | | | care | | | provid | | | ers on | | | | | | record | | | at | | | this | | | time. | | | Recent | | | | | | Emerge | | | ncy | | | Depart | | | ment | | | Visit | | | [place] | | | yAdmit | | | Date | | | Facili | | | ty | | | City | | | State | | | Type | | | Major | | | Type | | | Diagno | | | ses or | | | Chief | | | | | | Compla | | | int | | | Mar | | | 31, | | | 2018 | | | [place] | | | [place] | | | [place] | | | [place] | | | [place] | | | Emerge | | | ncy | | | Emerge | | | ncy | | | Arm | | | injury | | | Epi | | | 12, | | | 2018 | | | Provid | | | ence | | | [facility] | | | [facility] | [place] | | | [place] | | | Emerge | | | ncy | | | Emerge | | | ncy | | | Poss | | | Broken | | | Arm L | | | | | | Arm | | | Pain | | | | | | Unspec | | | ified | | | fractu | | | re of | | | upper | | | end of | | | right | | | | | | humeru | | | s, | | | initia | | | l | | | encoun | | | ter | | | for | | | closed | | | | | | fractu | | | re | | | Epi 9, | | | 2018 | | | [facility] | | | gregory | | | Commun | | | ity H. | | | | | | [place] | | | [place] | | | Emerge | | | ncy | | | Emerge | | | ncy | | | 0. | | | FALL | | | INJURY | | | 1. | | | Other | | | | | | displa | | | fauzia | | | fractu | | | re of | | | upper | | | end of | | | right | | | | | | humeru | | | s, | | | initia | | | l | | | encoun | | | ter | | | for | | | closed | | | | | | fractu | | | re | | | 2. | | | Fall | | | on | | | same | | | level | | | from | | | slippi | | | ng, | | | trippi | | | ng and | | | | | | stumbl | | | ing | | | withou | | | t | | | subseq | | | uent | | | striki | | | ng | | | agains | | | t | | | object | | | , | | | initia | | | l | | | encoun | | | ter | | | Other | | | | | | specif | | | ied | | | injuri | | | es of | | | right | | | should | | | er and | | | upper | | | arm, | | | initia | | | l | | | encoun | | | ter | | | 2. | | | Kitche | | | n in | | | other | | | non-in | | | stitut | | | ional | | | reside | | | nce as | | | the | | | place | | | of | | | occurr | | | ence | | | of the | | | | | | consolidator | | | al | | | cause | | | 2. | | | Activi | | | ty, | | | walkin | | | g, | | | marchi | | | ng and | | | | | | hiking | | | | | | Recent | | | | | | Inpati | | | ent | | | Visit | | | [place] | | | yNo | | | record | | | ed | | | inpati | | | ent | | | visits | | | . E.D. | | | Visit | | | Count | | | (12 | | | mo.)Fa | | | cility | | | | | | Visits | | | | | | [facility] | | | [facility] | | | | | | Hospit | | | al 1 | | | Provid | | | ence | | | St. | | | [facility] | | | Medica | | | l | | | Center | | | 1 | | | [facility] | | | gregory | | | Commun | | | ity | | | Hospit | | | al 1 | | | Total | | | 3 | | | Note: | | | Visits | | | | | | indica | | | te | | | total | | | known | | | visits | | | . | | | PDMP | | | Report | | | PDMP | | | query | | | found | | | no | | | report | | | .The | | | above | | | inform | | | ation | | | is | | | provid | | | ed for | | | the | | | sole | | | purpos | | | e of | | | patien | | | t | | | treatm | | | ent. | | | Use of | | | this | | | inform | | | ation | | | beyond | | | the | | | terms | | | of | | | Data | | | Sharin | | | g | | | Memora | | | ndum | | | of | | | Unders | | | tandin | | | g and | | | Licens | | | e | | | Agreem | | | ent is | | | | | | prohib | | | ited. | | | In | | | certai | | | n | | | cases | | | not | | | all | | | visits | | | may | | | be | | | repres | | | ented. | | | | | | Consul | | | t the | | | aforem | | | ention | | | ed | | | facili | | | ties | | | for | | | additi | | | onal | | | inform | | | ation. | | | ? | | | 2018 | | | Colle[employer] | | | tive | | | Medica | | | l | | | Techno | | | logies | | | , Inc[employer] | | | - | | | [place] | | | [place] | | | [place], | | | [place] - | | | [email or web address] | | | ollect | | | ivemed | | | icalte | | | [email or web address] | | | | +---+--------+ documented in this encounter Results XR Shoulder Right 2 + Vw (08/30/2017 6:35 AM PDT) + + | Specimen | + + | | + + + + + | Impressions | Performed At | + + + | IMPRESSION: 1. Acute fracture of the humeral neck with displacement | [facility] | | as above. Dictated by: Antonio Samayoa | | + + + + + + | Narrative | Performed At | + + + | EXAMINATION: XR SHOULDER RIGHT 2 + VW HISTORY: ARM INJURY | [facility] | | COMPARISON STUDY: None FINDINGS: Acute fracture of the humeral | | | neck without extension into the head. The fracture is displaced | | | medially 9 mm and foreshortened 14 mm. Glenohumeral articulation is | | | intact. | | + + + + + | Procedure Note | + + | Blaise, Rad Results In - 08/30/2017 7:56 AM PDT EXAMINATION:XR SHOULDER RIGHT 2 + | | VWHISTORY:ARM INJURYCOMPARISON STUDY:NoneFINDINGS:Acute fracture of the humeral neck | | without extension into the head. The fracture is displaced medially 9 mm and | | foreshortened 14 mm. Glenohumeral articulation is intact.IMPRESSION: IMPRESSION:1. | | Acute fracture of the humeral neck with displacement as above.Dictated by: Antonio | | Maryam | |COMPARISON STUDY: | |None | | | |FINDINGS: | |Acute fracture of the humeral neck without extension into the head. The fracture is displa fauzia medially 9 mm and foreshortened 14 mm. Glenohumeral articulation is intact. | | | |IMPRESSION: | |IMPRESSION: | |1. Acute fracture of the humeral neck with displacement as above. | | | |Dictated by: Antonio Samayoa | | | | | + + + +---------+ + + | Performing | Address | City/State/Zipcode | Phone Number | | Organization | | | | + +---------+ + + | [facility] | | | | + +---------+ + + documented in this encounter Visit Diagnoses + + | Diagnosis | + + | Closed displaced fracture of surgical neck of right humerus, unspecified fracture | | morphology, initial encounter - Primary | + + documented in this encounter
--- OUTSIDE RECORDS SUMMARY | ~2019-05-26 | XMS | Encounter Summary ---
Demographics + + + | Address | [address] | | | [place] [address] | + + + | Home Phone | | + + + | Preferred Language | Unknown | + + + | Marital Status | Single | + + + | Restoration Affiliation | Unknown | + + + | Race | Unknown | + + + | Ethnic Group | Unknown | + + + Author + + + | Author | [facility] | | | and [place] | + + + | Organization | [facility] | | | and [place] | + + + | Address | Unknown | + + + | Phone | Unavailable | + + + Support + + +---------+ + | Name | Relationship | Address | Phone | + + +---------+ + | Malinda Meza | ECON | Unknown | | + + +---------+ + | Malinda Rousseau ECON | Unknown | | + + +---------+ + Care Team Providers + +------+ + | Care Tailor Helper Name | Role | Phone | + +------+ + | Magan Ayon DO | PCP | | + +------+ + Encounter Details +--------+ + + + + | Date | Type | Department | Care Team | Description | +--------+ + + + + | 06/25/ | Episode | [facility] | Starla-Thu, | | | 2017 | Changes | ORTHOPEDIC SURGERY | Floyd Lombardi MA | | | | | [address] | | | | | | [place], [place] | | | | | | [address] | | | | | | [phone] | | | +--------+ + + + + Social [...] + + documented as of this encounter Plan of Treatment Not on filedocumented as of this encounter Visit Diagnoses Not on filedocumented in this encounter"
--- OUTSIDE RECORDS SUMMARY | ~2019-05-26 | XMS | Encounter Summary ---
Demographics + + + | Address | [address] | | | [place] [address] | + + + | Home Phone | | + + + | Preferred Language | Unknown | + + + | Marital Status | Single | + + + | Sabianism Affiliation | Unknown | + + + | Race | Unknown | + + + | Ethnic Group | Unknown | + + + Author + + + | Author | [facility] | | | and [place] | + + + | Organization | [facility] | | | and [...] Team Providers + +------+ + | Care Contamination Consultant Name | Role | Phone | + +------+ + PCP | Unavailable | + +------+ + Encounter Details +--------+ + + + + | Date | Type | Department | Care Team | Description | +--------+ + + + + | 01/07/ | Hospital | [facility] | Glen Hernandez MD | | | 2001 | Encounter | HOSPITAL EMERGENCY | | | | | | CENTER [address] | | [address] [place], [place] | | | | | | [address] | | | | | | [phone] | | | +--------+ + + + + Social History + +-------+ +--------+------+ | Tobacco Use | Types | Packs/Day | Years | Date | | | | | Used | | + +-------+ +--------+------+ | Never Assessed | | | | | + +-------+ +--------+------+ + + + | Sex Assigned at [...]
--- OUTSIDE RECORDS SUMMARY | ~2019-05-26 | XMS | Encounter Summary ---
Demographics + + + | Address | [address] | | | [place] [address] | + + + | Home Phone | | + + + | Preferred Language | Unknown | + + + | Marital Status | Single | + + + | Lutheran Affiliation | Unknown | + + + | Race | Unknown | + + + | Ethnic Group | Unknown | + + + Author + + + | Author | [facility] | | | and [place] | + + + | Organization | [facility] | | | [...] Team Providers + +------+ + | Care Mailer Apprentice Name | Role | Phone | + +------+ + | Magan Ayon DO | PCP | | + +------+ + Encounter Details +--------+ + + + + | Date | Type | Department | Care Team | Description | +--------+ + + + + | 06/13/ | Imaging | [facility] | Provider, | | | 2018 | Exam | [facility] | [address] | | | | | IMAGING | [address] | | | | | [phone] | [place] [address] | | +--------+ + + + + [...] Not on filedocumented as of this encounter Procedures + +--------+ + + + | Procedure Name | Priori | Date/Time | Associated Diagnosis | Comments | | | ty | | | | + +--------+ + + + | XR SHOULDER RIGHT 1 | Routin | 06/10/2017 | | Results for this | | VW | e | 6:10 AM | | procedure are in the | | | | PST | | results section. | + +--------+ + + + documented in this encounter Results XR Shoulder Right 1 Vw (06/10/2017 6:10 AM PST) + + | Specimen | + + | | + + + + + | Narrative | Performed At | + + + | External films | [facility] | | for comparison only - no result from [place]. | | + + + + +---------+ + + | Performing | Address | City/State/Zipcode | Phone Number | | Organization | | | | + +---------+ + + | [facility] | | | | + +---------+ + + documented in this encounter Visit Diagnoses Not on filedocumented in this encounter"
--- OUTSIDE RECORDS SUMMARY | ~2019-05-26 | XMS | Encounter Summary ---
Demographics + + + | Address | [address] | | | [place] [address] | + + + | Home Phone | | + + + | Preferred Language | Unknown | + + + | Marital Status | Single | + + + | Methodist Affiliation | Unknown | + + + | Race | Unknown | + + + | Ethnic Group | Unknown | + + + Author + + + | Author | [facility] | | | and [place] | + + + | Organization | [facility] | | | [...] Team Providers + +------+ + | Care Leather Belt Loop Cutter Name | Role | Phone | + +------+ + PCP | Unavailable | + +------+ + Encounter Details +--------+ + + + + | Date | Type | Department | Care Team | Description | +--------+ + + + + | 01/07/ | Hospital | [facility] | Glen Hernandez MD | | | 2001 | Encounter | HOSPITAL EMERGENCY | | | | | | CENTER [address] | | | [address] [place], [place] | | | | | | [address] | | | | | | [phone] | | | +--------+ + + + [...]
--- OUTSIDE RECORDS SUMMARY | ~2019-05-26 | XMS | Encounter Summary ---
Demographics + + + | Address | [address] | | | [place] [address] | + + + | Home Phone | | + + + | Preferred Language | Unknown | + + + | Marital Status | Single | + + + | Druze Affiliation | Unknown | + + + | Race | Unknown | + + + | Ethnic Group | Unknown | + + + Author + + + | Author | [facility] | | | and [place] | + + + | Organization | [facility] | | | and [place] | + + + | Address | Unknown | + + + | Phone | Unavailable | + + + Support + + +---------+ + | Name | Relationship | Address | Phone | + + +---------+ + | Malinda Meza | ECON | Unknown | | + + +---------+ + | Malinda Susana Soham ECON | Unknown | | + + +---------+ + Care Team Providers + +------+ + | Care Resident Physician Name | Role | Phone | + +------+ + | Magan Ayon DO | PCP | | + +------+ + Reason for Visit + + + | Reason | Comments | + + + | Appointment | Fracture Care Follow Up | + + + Encounter Details +--------+ + + + + | Date | Type | Department | Care Team | Description | +--------+ + + + + | 06/18/ | Telephone | [facility] | Juaquin Lyons, | Appointment | | 2017 | | ORTHOPEDIC SURGERY | [address] | (Fracture Care | | | | [address] [place] [address] | [facility] [place] | Follow Up) | | | | [place], [place] | [address] | | | | | [address] | | | | | | [phone] | | | +--------+ + + + [...] filedocumented as of this encounter Visit Diagnoses + + | Diagnosis | + + | Other closed displaced fracture of proximal end of right humerus, initial encounter - | | Primary | + + documented in this encounter"
--- OUTSIDE RECORDS SUMMARY | ~2019-05-26 | XMS | Encounter Summary ---
Demographics + + + | Address | [address] [facility] [facility] [address] | | | [place] [address] | + + + | Home Phone | | + + + | Preferred Language | Unknown | + + + | Marital Status | Single | + + + | Jewish Affiliation | Unknown | + + + | Race | Unknown | + + + | Ethnic Group | Unknown | + + + Author + + + | Author | [facility] | | | and [place] | + + + | Organization | [facility] | | | [...] Team Providers + +------+ + | Care Tax Manager Name | Role | Phone | [...] | | CENTER [address] | [facility] | neck of right | | | | DR [place], [place] | [employer], [place] [address] | humerus, unspecified | | | | [address] | [phone] | fracture | | | | [phone] | | morphology, initial | | | [...] D?MRN: | | | | | | [id number] | | | [id number] | | | ecurit | | | [...] 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
--- OUTSIDE RECORDS SUMMARY | ~2019-05-26 | XMS | Clinical Summary ---
Demographics + + + | Address | [address] | | | [place] [address] | + + + | Home Phone | | + + + | Preferred Language | Unknown | + + + | Marital Status | Single | + + + | Jewish Affiliation | Unknown | + + + | Race | Unknown | + + + | Ethnic Group | Unknown | + + + Author + + + | Author | [facility] (Historical as of | | | 01-16-19) | + + + | Organization | [facility] (Historical as of | | | 01-16-19) | + + + | Address | Unknown | + + + | Phone | Unavailable | + + + Support + + +---------+ + | Name | Relationship | Address | Phone | + + +---------+ + | John Nix | ECON | Unknown | | + + +---------+ + Care Team Providers + +------+ + | Care Disintegrator Name | Role | Phone | + [...] | | | | | (#1) | 9 | | | + + + + [...] | | + +--------+ +------+-------+ + | [employer] | YELLOW | [id number] | | | | | PLANS | [place] | | | | | + +--------+ +------+-------+ + | MEDICAID | MEDICA | [id number] | | | [address] | | | ID | | | | [place] | | | [place] | | | | [address] | + +--------+ +------+-------+ + + +--------+ +--------+ + + | Guarantor Name | Accoun | Relation to | Date | Phone | Billing Address | | | t Type | Patient | of | | | | | | | | | | + +--------+ +--------+ + + | MINTHORN | Person | Self [birth year] Home: | [address] [place] [address] | | JHONNY NIX | zoraida/Cristhian | | 1990 | [phone] | [place] [address] | | | liset | | | [phone] | | + +--------+ +--------+ + +
--- OUTSIDE RECORDS SUMMARY | ~2019-05-26 | XMS | Encounter Summary ---
Demographics + + + | Address | [address] [facility] [address] [facility] [address] | | | [place] [address] | + + + | Home Phone | | + + + | Preferred Language | Unknown | + + + | Marital Status | Single | + + + | Rastafari Affiliation | Unknown | + + + | Race | Unknown | + + + | Ethnic Group | Unknown | + + + Author + + + | Author | [facility] | | | and [place] | + + + | Organization | [facility] | | | [...] Team Providers + +------+ + | Care Welder Setter Electron Beam Machine Name | Role | Phone | + +------+ + | Magan Ayon DO | PCP | | + +------+ + Encounter Details +--------+ + + + + | Date | Type | Department | Care Team | Description | +--------+ + + + + | 06/17/ | Orders Only | [facility] | Kira Mix, | | | 2017 | | [facility] | MD [address] | | | | | [address] | [place] [address] | | | | | [place], [place] | [phone] | | | | | [address] | | | | | | [phone] | | | +--------+ + + + [...] + | XR SHOULDER RIGHT 2 | Routin | 06/17/2017 | | Results for this | | + VW | e | 1:54 PM | | procedure are in the | | | | PST | | results section. | + +--------+ + + + documented in this encounter Results XR Shoulder Right 2 + Vw (06/17/2017 1:54 PM PST) + + | Specimen | + + | | + + + + + | Narrative | Performed At | + + + | X-ray 3 views right shoulder- transverse proximal humerus fracture | | | at the surgical neck with appropriate glenohumeral relationship | | | Kira Mix MD 06/17/2017 2:28 PM | | + + + + + | Procedure Note | + + | Rodrigue Dickens Conversion - 01/21/2019 5:19 PM PDT X-ray 3 views right shoulder- | | transverse proximal humerus fracture at thesurgical neck with appropriate glenohumeral | | relationship Kira Mix MD06/17/20172:28 PM | |Kira Mix MD | |06/17/2017 | |2:28 PM | | | | | | | + + documented in this encounter Visit Diagnoses Not on filedocumented in this encounter"
--- OUTSIDE RECORDS SUMMARY | ~2019-05-26 | XMS | Encounter Summary ---
Demographics + + + | Address | [address] [facility] [address] | | | [place] [address] | + + + | Home Phone | | + + + | Preferred Language | Unknown | + + + | Marital Status | Single | + + + | Church Affiliation | Unknown | + + + | Race | Unknown | + + + | Ethnic Group | Unknown | + + + Author + + + | Author | [facility] | | | and [place] | + + + | Organization | [facility] | | | [...] Team Providers + +------+ + | Care Director Zone Name | Role | Phone | + +------+ + | Magan Ayon DO | PCP | | + +------+ + Encounter Details +--------+ + + + + | Date | Type | Department | Care Team | Description | +--------+ + + + + | 06/18/ | Episode | [facility] | Starla-Thu, | | | 2017 | Changes | ORTHOPEDIC SURGERY | Floyd Lombardi [place] | | | | | [address] | | | | | | [place], [place] | | | | | | [address] | | | | | | [phone] | | | +--------+ + + + [...]
--- OUTSIDE RECORDS SUMMARY | ~2019-05-26 | XMS | Encounter Summary ---
Demographics + + + | Address | [address] [facility] [address] | | | [place] [address] | + + + | Home Phone | | + + + | Preferred Language | Unknown | + + + | Marital Status | Single | + + + | Protestant Affiliation | Unknown | + + + | Race | Unknown | + + + | Ethnic Group | Unknown | + + + Author + + + | Author | [facility] | | | and [place] | + + + | Organization | [facility] | | [...] Team Providers + +------+ + | Care Airplane Patrol Pilot Name | Role | Phone | + +------+ + | Magan Ayon DO | PCP | | + +------+ + Reason for Visit + + + | Reason | Comments | + + + | Arm Pain | | + + + Auth/Cert +--------+--------+ + + + + | Status | Reason | Specialty | Diagnoses / | Referred By | Referred To | | | | | Procedures | Contact | Contact | +--------+--------+ + + + + | | | | | | | +--------+--------+ + + + + Encounter Details +--------+ + + + + | Date | Type | Department | Care Team | Description | +--------+ + + + + | 06/13/ | Emergency | [facility] | Roman, | Closed fracture of | | 2018 | | [facility] CTR EM[facility]Y | MD [address] | proximal end of | | | | CENTER [address] | [address] [place] [address] | right humerus, | | | | [place], [place] | [place] [address] | unspecified fracture | | | | [address] | [phone] | morphology, initial | | | | [phone] | | encounter (Primary | | | [...] + + + | Blood Pressure | 107/64 | 06/13/2017 1:00 PM | | | | | PST | | + + + + + | Pulse | 88 | 06/13/2017 1:00 PM | | | | | PST | | + + + + + | Temperature | 37.1 C (98.7 F) | 06/13/2017 1:00 PM | | | | | PST | | + + + + + | Respiratory Rate | 12 | 06/13/2017 1:00 PM | | | | | PST | | + + + + + | Oxygen Saturation | 100% | 06/13/2017 1:00 PM | | | | | PST | | + + + + + | Inhaled Oxygen | - | - | | | Concentration | | | | + + + + + | Weight | 59 kg (130 lb) | 06/13/2017 1:00 PM | | | | | PST | | + + + + + | Height | 160 cm (5' 3") | 06/13/2017 1:00 PM | | | | | PST | | + + + + + | Body Mass Index | 23.03 | 06/13/2017 1:00 PM | | | | | PST | | + + + + + documented in this encounter Discharge Instructions Instructions Louis Owens MD - 06/13/2017Continue to ice for the sling. Follow-up w ramana Stokes on Friday at 4:30 in his office at the address below. Please arrive about 1 5 minutes early for paperwork. Thank you for visiting [facility] Emergency Department. Please follow up with your primary care provider in the next 1-3 days unless otherwise spec ified. If you review your results on "My Charts" and there happens to be any concerns or abnormali ties that you have a question about, please follow up with your primary care provider to dis cuss these results. Please read all informational handouts and medication instructions, if provided. Please be aware that although we feel you are safe for discharge at this time, disease proc esses are dynamic and your condition may change. If you have any significant concerns about your condition that you fear may be emergent in nature, please return for re-evaluation. Changes in the disease process may allow certain conditions to be detected at a different t saida. You would not be released today if there was evidence of an emergent medical or surgica l condition that would benefit from admission to the hospital or emergent surgery. Although this emergency department is staffed with highly trained physicians that are board certified in emergency medicine, unfortunately not all significant problems are detectable during the time of evaluation. This is why it is important for you to return if significantly concerne d, or otherwise follow up with your primary care provider for re-evaluation. documented in this encounter Medications at Time [...] XR SHOULDER RIGHT 2 | Routin | 06/10/2017 | | Results for this | | + VW | e | 6:05 AM | | procedure are in the [...] for comparison only - no result from [place]. | | + + + + +---------+ + + | Performing | Address | City/State/Zipcode | Phone Number | | Organization | | | | + +---------+ + + | [facility] | | | | + +---------+ + + XR Shoulder Right 2 + Vw (06/10/2017 6:05 AM PST) + + | Specimen | + + | | + + + + + | Narrative | Performed At | + + + | External films | [facility] | | for comparison only - no result from [place]. | | + + + + +---------+ + + | Performing | Address | City/State/Zipcode | Phone Number | | Organization | | | | + +---------+ + + | [facility] | | | | + +---------+ + + documented in this encounter Visit Diagnoses + + | Diagnosis | + + | Closed fracture of proximal end of right humerus, unspecified fracture morphology, | | initial encounter - Primary | + + documented in this encounter
--- OUTSIDE RECORDS SUMMARY | ~2019-05-26 | XMS | Clinical Summary ---
Demographics + + + | Address | [address] [facility] [address] | | | [place] [address] | + + + | Home Phone | | + + + | Preferred Language | Unknown | + + + | Marital Status | Single | + + + | Shinto Affiliation | Unknown | + + + | Race | Unknown | + + + | Ethnic Group | Unknown | + + + Author + + + | Author | [facility] | | | and [place] | + + + | Organization | [facility] | | | and [place] | + + + | Address | Unknown | + + + | Phone | Unavailable | + + + Support + + +---------+ + | Name | Relationship | Address | Phone | + + +---------+ + | Malinda Meza | ECON | Unknown | | + + +---------+ + | Malinda Meza Soham ECON | Unknown | | + + +---------+ + Care Team Providers + +------+ + | Care Senior Site Manager Name | Role | Phone | + +------+ + | Magan Ayon DO | PCP | | + +------+ + Allergies No Known Allergies Medications + + + +---------+------+------+-------+ | Medication | Sig | Dispensed | Refills | Star | End | Statu | | | | | | t | Date | s | | | | | | Date | | | + + + +---------+------+------+-------+ | | Take 1 tablet by | | 0 | | | Activ | | HYDROcodone-acetamin | mouth every 6 hours | | | | | e | | ophen (NORCO) 5-325 | as needed for Pain. | | | | | | | mg per tablet | | | | | | | + + + +---------+------+------+-------+ Active Problems No known active problems Family History + +------+--------+ + | Relation [...] recent travel history available. | + + Last Filed Vital Signs + [...] | | + + + + + Plan of Treatment + + + + + | Health Maintenance | Due Date | Last Done | Comments | + + + + + | Vaccine: | | | | | Dtap/Tdap/Td (1 - | 2 | | | | Tdap) | | [...] Last 3 Months Insurance + +--------+ +--------+ +---------+--------+ | Payer | Benefi | Subscriber | Effect | Phone | Address | Type | | | t Plan | ID | delroy | | | | | | / | | Dates | | | | | | Group | | | | | | + +--------+ +--------+ +---------+--------+ | [facility] | IHS | [id number] | 06/02/19 | | | Indemn | | SERVICE | YELLOW | | 18-Pre | | | ity | | | [place] | | sent | | | | + +--------+ +--------+ +---------+--------+ | [facility] | IHS | [id number] | 06/02/19 | | | Indemn | | SERVICE | YELLOW | | 18-Pre | | | ity | | | HAWK | | sent | | | | + +--------+ +--------+ +---------+--------+ | [place] | MEDICA | [id number] | 07/03/19 | [phone] | | Medica | | | [place] | | 17-Pre | 2 | | id | | | PLUS | | sent | | | | + +--------+ +--------+ +---------+--------+ | [place] | MEDICA | [id number] | | [phone] | | Medica | | | [place] | | 018-Pr | 2 | | id | | | PLUS | | esent | | | | + +--------+ +--------+ +---------+--------+ | [place] | MEDICA | [id number] | | [phone] | | Medica | | | [place] | | 018-Pr | 2 | | id | | | PLUS | | esent | | | | + +--------+ +--------+ +---------+--------+ + +--------+ +--------+ + + | Guarantor Name | Accoun | Relation to | Date | Phone | Billing Address | | | t Type | Patient | of | | | | | | | | | | + +--------+ +--------+ + + | Minthorn | Person | Self [birth year] | | [address] | | [place] | al/Fam | | 1991 | [phone] | [place] | | | liset | | | 6 (Home) | [phone] | + +--------+ +--------+ + + | Minthorn | Person | Self | [birth year] | | [address] | | Gwendol[place] Nix | al/Fam | | 1991 | [phone] | [address] [place] | | | liset | | | 6 ([place]) | [address] | + +--------+ +--------+ + + Advance Directives + + + + + | Type | Date Recorded | Patient | Explanation | | | | Commis Chef | | + + + + + | Power of | | | | | De Ionizer Operator | | | | + + + + + | Power of | | | | | De Ionizer Operator | | | | + + + + + | Advance | | | | | Directive | | | | + + + + + | Advance | 08/30/2017 6:39 | | | | Directive | AM | | | + + + + +
--- OUTSIDE RECORDS SUMMARY | ~2019-05-26 | XMS | Encounter Summary ---
Demographics + + + | Address | [address] [facility] [address] | | | [place] [address] | + + + | Home Phone | | + + + | Preferred Language | Unknown | + + + | Marital Status | Single | + + + | Yarsanism Affiliation | Unknown | + + + [...] Team Providers + +------+ + | Care Forest Fire Warden Name | Role | Phone | + [...] [address] | | | | | [phone] | [place] [address] | | +--------+ + + + + [...] Results XR Shoulder Right 2 + Vw (06/10/2017 6:05 AM PST) + + | Specimen | + + | | + + + + + | Narrative | Performed At | + + + | External films | [facility] | | for comparison only - no result from [place]. | | + + + + +---------+ + + | Performing | Address | City/State/Zipcode | Phone Number | | Organization | | | | + +---------+ + + | [facility] | | | | + +---------+ + + documented in this encounter Visit Diagnoses Not on filedocumented in this encounter"
--- OUTSIDE RECORDS SUMMARY | ~2019-05-26 | XMS | Encounter Summary ---
Demographics + + + | Address | [address] [facility] [address] | | | [place] [address] | + + + | Home Phone | | + + + | Preferred Language | Unknown | + + + | Marital Status | Single | + + + | Scientology Affiliation | Unknown | + + + | Race | Unknown | + + + | Ethnic Group | Unknown | + + + Author + + + | Author | [facility] | | | and [place] | + + + | Organization | [facility] | | | [...] Team Providers + +------+ + | Care Machine Sneller Name | Role | Phone | + [...] [place] | | | | | [address] | | | | | | [place], [place] | | | | | | [address] | | | | | | [phone] | | | +--------+ + + + [...]
--- OUTSIDE RECORDS SUMMARY | ~2019-05-26 | XMS | Encounter Summary ---
Demographics + + + | Address | [address] [facility] [address] | | | [place] [address] | + + + | Home Phone | | + + + | Preferred Language | Unknown | + + + | Marital Status | Single | + + + | Synagogue Affiliation | Unknown | + + + | Race | Unknown | + + + | Ethnic Group | Unknown | + + + Author + + + | Author | [facility] | | | and [place] | + + + | Organization | [facility] | | [...] Team Providers + +------+ + | Care Dock Supervisor Name | Role | Phone | [...] + + | 06/13/ | Emergency | [facility] | Roman, | Closed fracture of | | 2018 | | MED CTR EMERGENCY | MD [address] | proximal end of | | | | CENTER [address] | [address] [place] [address] | right humerus, | | | | [place], [place] | [place] [address] | unspecified fracture | | | | [address] | [phone] | morphology, initial | | | | [phone] | | encounter (Primary | | | [...] early for paperwork. Thank you for visiting [facility] Emergency Department. Please follow up with your [...] for comparison only - no result from [place]. | | + + + + +---------+ [...] for comparison only - no result from [place]. | | + + + + +---------+ [...]
--- OUTSIDE RECORDS SUMMARY | ~2019-05-26 | XMS | Encounter Summary ---
Demographics + + + | Address | [address] [facility] [address] | | | [place] [address] | + + + | Home Phone | | + + + | Preferred Language | Unknown | + + + | Marital Status | Single | + + + | Sikhism Affiliation | Unknown | + + + | Race | Unknown | + + + | Ethnic Group | Unknown | + + + Author + + + | Author | [facility] | | | and [place] | + + + | Organization | [facility] | | | [...] Team Providers + +------+ + | Care Car Rental Sales Assistant Name | Role | Phone | + [...] [address] | | | | | [phone] | [place] [address] | | +--------+ + + + + [...] for comparison only - no result from [place]. | | + + + + +---------+ + + | Performing | Address | City/State/Zipcode | Phone Number | | Organization | | | | + +---------+ + + | [facility] | | | | + +---------+ + + documented in this encounter Visit Diagnoses Not on filedocumented in this encounter"
--- OUTSIDE RECORDS SUMMARY | ~2019-05-26 | XMS | Clinical Summary ---
Demographics + + + | Address | [address] | | | [place] [address] | + + + | Home Phone | | + + + | Preferred Language | Unknown | + + + | Marital Status | Single | + + + | Islam Affiliation | Unknown | + + + | Race | Unknown | + + + | Ethnic Group | Unknown | + + + Author + + + | Author | [facility] (Historical as of | | | 01-16-19) | + + + | Organization | [facility] (Historical as of | | | 01-16-19) [...] Team Providers + +------+ + | Care Center Administrator Name | Role | Phone | + [...] | | + +--------+ +------+-------+ + | [facility] | YELLOW | [id number] | | | | | PLANS | [place] | | | | | + +--------+ +------+-------+ + | MEDICAID | MEDICA | [id number] | | | [address] | | | ID | | | | [place] | | | [place] | | | | [address] | + +--------+ +------+-------+ + + +--------+ +--------+ + + | Guarantor Name | Accoun | Relation to | Date | Phone | Billing Address | | | t Type | Patient | of | | | | | | | | | | + +--------+ +--------+ + + | MINTHORN | Person | Self | [birth year] | Home: | [address] [place] [address] | | [place] [address] | zoraida/Cristhian | | 1990 | [phone] [place] [address] | | | liset | | | [phone] | | + +--------+ +--------+ + +
--- OUTSIDE RECORDS SUMMARY | ~2019-05-26 | XMS | Encounter Summary ---
Demographics + + + | Address | [address] [facility] [address] | | | [place] [address] | + + + | Home Phone | | + + + | Preferred Language | Unknown | + + + | Marital Status | Single | + + + | Shinto Affiliation | Unknown | + + + | Race | Unknown | + + + | Ethnic Group | Unknown | + + + Author + + + | Author | [facility] | | | and [place] | + + + | Organization | [facility] | | | and [...] Team Providers + +------+ + | Care Urgent Care Physician Name | Role | Phone | [...] + + | 06/18/ | Telephone | [facility] | Juaquin Lyons, | Appointment | | 2017 | | ORTHOPEDIC SURGERY | [address] [facility] | (Fracture Care | | | | [address] [place] [address] | [facility] | Follow Up) | | | | [place], [place] | [address] | | | | | [address] | | | | | | [phone] | | | +--------+ + + + [...]
--- OUTSIDE RECORDS SUMMARY | ~2019-05-26 | XMS | Encounter Summary ---
Demographics + + + | Address | [address] [facility] [address] | | | [place] [address] | + + + | Home Phone | | + + + | Preferred Language | Unknown | + + + | Marital Status | Single | + + + | Quaker Affiliation | Unknown | + + + [...] Team Providers + +------+ + | Care City Route Driver Name | Role | Phone | + [...] Hospital | | | | | | [place], [place] | | | | | | [address] | | | | | | [phone] | | | +--------+ + + + [...]
--- OUTSIDE RECORDS SUMMARY | ~2019-05-26 | XMS | Encounter Summary ---
Demographics + + + | Address | [address] [facility] [address] | | | [place] [address] | + + + | Home Phone [...] + + + | Author | [facility] | | | and [place] | + + + | Organization | [facility] | | | and [...] Team Providers + +------+ + | Care Tactical Debriefer Officer Name | Role | Phone | + [...] [address] | | | | | [phone] | [place] [address] | | +--------+ + + + + [...] for comparison only - no result from [place]. | | + + + + +---------+ + + | Performing | Address | City/State/Zipcode | Phone Number | | Organization | | | | + +---------+ + + | [facility] | | | | + +---------+ + + documented in this encounter Visit Diagnoses Not on filedocumented in this encounter"
--- OUTSIDE RECORDS SUMMARY | ~2019-05-26 | XMS | Clinical Summary ---
Demographics + + + | Address | [address] [facility] [address] | | | [place] [address] | + + + | Home Phone | | + + + | Preferred Language | Unknown | + + + | Marital Status | Single | + + + | Mandaen Affiliation | Unknown | + + + | Race | Unknown | + + + | Ethnic Group | Unknown | + + + Author + + + | Author | [facility] | | | and [place] | + + + | Organization | [facility] | | | [...] Team Providers + +------+ + | Care Manager Retention Name | Role | Phone | + [...] | | + +--------+ +--------+ +---------+--------+ | [facility] | IHS | [id number] | 06/02/19 | | | Indemn | | SERVICE | YELLOW | | 18-Pre | | | ity | | | [place] | | sent | | | | + +--------+ +--------+ +---------+--------+ | [facility] | IHS | [id number] | 06/02/19 | | | Indemn | | SERVICE | YELLOW | | 18-Pre | | | ity | | | HAWK | | sent | | | | + +--------+ +--------+ +---------+--------+ | [place] | MEDICA | [id number] | 07/03/19 | [phone] | | Medica | | | [place] | | 17-Pre | 2 | | id | | | PLUS | | sent | | | | + +--------+ +--------+ +---------+--------+ | [place] | MEDICA | [id number] | | [phone] | | Medica | | | [place] | | 018-Pr | 2 | | id | | | PLUS | | esent | | | | + +--------+ +--------+ +---------+--------+ | [employer] | MEDICA | [id number] | | [phone] | | Medica | [...] liset | | | 6 (Home) | [address] | + +--------+ +--------+ + + | Minthorn | Person | Self | [birth year] | | [address] | | [place] [address] | al/Fam | | 1991 | [phone] | [address] [place] | | | liset | | | 6 ([place]) | [address] | + +--------+ +--------+ + + Advance Directives + + + + + | Type | Date Recorded | Patient | Explanation | | | | Commercial Carpenter | | + + + + + | Power of | | | | | Resolution Specialist | | | | + + + + + | Power of | | | | | Resolution Specialist | | | | + + + + + | Advance | | | | | Directive | | | | + + + + + | Advance | 08/30/2017 6:39 | | | | Directive | AM | | | + + + + +
--- OUTSIDE RECORDS SUMMARY | ~2019-05-26 | XMS | Encounter Summary ---
Demographics + + + | Address | [address] [facility] | | | [place] [address] | + + + | Home Phone | | + + + | Preferred Language | Unknown | + + + | Marital Status | Single | + + + | Spiritism Affiliation | Unknown | + + + [...] Team Providers + +------+ + | Care Side Framer Name | Role | Phone | + +------+ + | Magan Ayon DO | PCP | | + +------+ + Encounter Details +--------+ + + + + | Date | Type | Department | Care Team | Description | +--------+ + + + + | 06/17/ | Orders Only | [facility] | Kira Mix, | | | 2017 | | [facility] | MD [address] | | | | | [address] | [place] [address] | | | | | [place], [place] | [phone] | | | | | [address] | | | | | | [phone] | | | +--------+ + + + [...] neck with appropriate glenohumeral | | relationship Kiar Mix MD06/17/20172:28 PM | |Kira Mix MD | |06/17/2017 | |2:28 PM | | | | | | | + + documented in this encounter Visit Diagnoses Not on filedocumented in this encounter"
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
== END 2019-05-26 21:05 | disposition home or self-care (01) ==
LOC: ED 20:06
DX: J20.9 Acute bronchitis, unspecified (principal)
CPT/HCPCS: 99283

== ENCOUNTER 2021-03-04 13:55 | Emergency (ER) | payer OTHER ==
[~2021-03-04] VITALS: Ht 160 cm; Wt 53.5 kg
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
== END 2021-03-04 16:45 | disposition home or self-care (01) ==
LOC: ED 13:55
DX: K59.00 Constipation, unspecified (principal)
CPT/HCPCS: 71250; 74176; 84703; 99284-25

== ENCOUNTER 2021-06-08 23:13 | Emergency (ER) | payer OTHER ==
[~2021-06-08] VITALS: Ht 160 cm; Wt 59.0 kg
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
== END 2021-06-09 01:59 | disposition home or self-care (01) ==
LOC: ED 23:13
DX: T40.411A Poisoning by fentanyl or fentanyl analogs, accidental (unintentional), initial encounter (principal)
CPT/HCPCS: 99283; J7121

== ENCOUNTER 2021-07-16 12:52 | Emergency (ER) | payer OTHER ==
[~2021-07-16] VITALS: Ht 160 cm; Wt 59.0 kg
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
[2021-07-16] MEDS ORDERED: NARCAN4 MG NAS (13:11)
== END 2021-07-16 15:00 | disposition home or self-care (01) ==
LOC: ED 12:52
DX: T40.411A Poisoning by fentanyl or fentanyl analogs, accidental (unintentional), initial encounter (principal)
CPT/HCPCS: 99284